=== PATIENT | male | born 1995 | race Caucasian/White ===

== ENCOUNTER 2018-08-05 12:19 | Outpatient (CLI) | payer OTHER ==
--- NOTE | 2018-08-05 13:53 | RAD ---
RADIOGRAPH CHEST 2 VIEWS: HISTORY: A 22-year-old male with dyspnea. FINDINGS: The lungs are clear. The cardiomediastinal silhouette and hilar shadows are normal. There is no ple ural effusion. The osseous structures appear normal. There is no pneumothorax. IMPRESSION: Normal. jn [] POS: CET
== END 2018-08-05 12:20 | disposition home or self-care (01) ==
LOC: BICRAD 12:19
PROVIDERS: ATTEND Physician Assistant Medical
DX: R06.02 Shortness of breath (principal)
CPT/HCPCS: 71046